=== PATIENT | female | born 2000 | race Hispanic/Latino ===

== ENCOUNTER 2021-01-25 15:03 | Emergency (ER) | payer OTHER ==
[~2021-01-25] VITALS: Ht 152.4 cm; Wt 52.3 kg
[2021-01-25 15:03] VITALS: BP 124/85
== END 2021-01-25 17:46 | disposition home or self-care (01) ==
LOC: M ED 15:03
DX: Z32.01 Encounter for pregnancy test, result positive (principal)

== ENCOUNTER 2021-03-22 03:40 | Emergency (ER) | payer OTHER ==
[~2021-03-22] VITALS: Ht 152.4 cm; Wt 45.0 kg
[2021-03-22] MEDS ORDERED: GNP28TAB2 PO (03:47)
[2021-03-22] MEDS ORDERED: NS 1,000 ML IV ONE (06:30)
[2021-03-22] MEDS ORDERED: ONDANSETRON 4MG/2ML VIAL IV ONE (07:15)
[2021-03-22 08:00] LABS: BASO % 0.1 % (0.0-1.0); HEMATOCRIT 38.3 % (36.0-47.0); HEMOGLOBIN 12.9 g/dl (12.0-15.5); LYMPH # 1.7 10^3/uL (1.5-5.0); LYMPH % 12.4 % (24.0-44.0); MEAN CORPUSCULAR HEMOGLOBIN 30.6 pg (27.0-33.0); MEAN CORPUSCULAR HGB CONC 33.7 g/dl (32.0-36.5); MEAN CORPUSCULAR VOLUME 90.8 fl (80.0-96.0); MONO # 0.8 10^3/uL (0.0-0.8); MONO % 5.7 % (2.0-8.0); NEUTROPHILS # 11.3 10^3/uL (1.5-8.5); NEUTROPHILS % 81.4 % (36.0-66.0); PLATELET COUNT, AUTOMATED 400 10^3/uL (150-450); RED BLOOD COUNT 4.22 10^6/uL (4.00-5.40); WHITE BLOOD COUNT 13.9 10^3/uL (4.0-10.0)
[2021-03-22 08:46] LABS: BLOOD UREA NITROGEN 12 MG/DL (7-18); CALCIUM LEVEL 10.3 MG/DL (8.5-10.1); CARBON DIOXIDE LEVEL 20 MEQ/L (21-32); CHLORIDE LEVEL 106 MEQ/L (98-107); CREATININE FOR GFR 0.51 MG/DL (0.55-1.30); GLUCOSE, FASTING 67 MG/DL (70-100); HCG, SERUM QUANTITATIVE 127646 MIU/ML; POTASSIUM SERUM 4.4 MEQ/L (3.5-5.1); SODIUM LEVEL 139 MEQ/L (136-145)
[2021-03-22] MEDS ORDERED: ONDA4TAB6 PO (08:58)
[2021-03-22 09:57] VITALS: BP 97/51
== END 2021-03-22 10:00 | disposition home or self-care (01) ==
LOC: M ED 03:40
DX: O99.281 Endocrine, nutritional and metabolic diseases complicating pregnancy, first trimester (principal); O99.111 Other diseases of the blood and blood-forming organs and certain disorders involving the immune mechanism complicating pregnancy, first trimester; Z3A.13 13 weeks gestation of pregnancy
CPT/HCPCS: 80048; 84702; 85025; 96361; 96374; 99284; J2405